=== PATIENT | female | born 1995 | race American Indian/Alaskan Native ===

== ENCOUNTER 2018-02-06 19:32 | Inpatient (IN) | payer MEDICAID ==
--- NOTE | 2018-02-06 21:51 | History and Physical Report ---
History of Present Illness Date of examination: 02/06/18 Date of admission: 02/06/18 19:32 Chief complaint: IUP@39weeks with IUGR, presents for induction by [facility] recommendation, states she was cephalic at [facility] office today. History of present illness: Past History : 2 Term Births: 1 Premature Births: 0 Living Children: 1 Para: 1 Mult. Births: 0 Prev : 0 Prev. attempt? 0 Aborta: 0 Elect. Ab: 0 Spont. Ab: 0 Ectopics: 0 # 1 Delivery date: 2014 Weeks Gestation: 37 labor: no Delivery type: Infant Sex: Male weight: 5# Comments: no complications Past Medical History: HSV Past Surgical History: negative Past Medical History Anesthesia Complications: negative Anemia: negative Autoimmune Disorder: negative Bleeding Disorder: negative Blood Transfusions: negative Breast Disease: negative Diabetes: negative Heart Disease: negative Hypertension: negative Hepatitis/Liver Disease: negative Kidney Disease/UTI: negative Neurologic/Epilepsy/Migraines: negative Phlebitis/Varicosities: negative Psychiatric: negative Pulmonary Disease/Asthma: negative Thyroid Disease: negative Hospitalizations: negative Surgery (Non-rn gyn): negative Abnormal PAP: negative Family Hx: HTN - mother and MGM 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 of genital herpes: yes Partner hx. of genital herpes: yes Rash, Viral, or Febrile illness since last LMP? no Varicella/Chicken Pox Status: Immunized Genetic History Congenital Heart Defect: Mom: no Dad: no Brissa Disease: Mom: no Dad: no Thalassemia Mom: no Dad: no Neural Tube Defect Mom: no Dad: no Down's Syndrome Mom: no Dad: no Teddy-Sachs Mom: no Dad: no Sickle Cell Disease/Trait Mom: no Dad: no Hemophilia Mom: no Dad: no Muscular Dystrophy Mom: no Dad: no Cystic Fibrosis Mom: no Dad: no Screven Chorea Mom: no Dad: no Mental Retardation Mom: no Dad: no Fragile X Mom: no Dad: no Other Genetic/Chromosomal Disorder Mom: no Dad: no Child w/other defect Mom: no Dad: no Enviromental Exposures Xray Exposure: no Medication, drug, or alcohol use since LMP: no Chemical/Other Exposure: no Exposure to Cat Liter: no Hx of Parvovirus (Fifth Disease): no Occupational Exposure to Children: none Current Allergies (reviewed today): No known allergies Past History - Obstetrical History Expected Date of Delivery: 02/11/18 Actual Gestation: 39 Week(s) 2 Day(s) : 2 Hx # Term Pregnancies: 1 Medications and Allergies Allergies Allergy/AdvReac Type Severity Reaction Status Date / Time No Known Allergies Allergy Unverified 02/06/18 20:29 Review of Systems All systems: negative - Vital Signs Vital signs: Vital Signs Temp Pulse Resp BP Pulse Ox 98.3 F 100 H 18 108/57 97 02/06/18 20:54 02/06/18 20:54 02/06/18 20:54 02/06/18 20:54 02/06/18 20:54 Temp Pulse Resp BP Pulse Ox 98.3 F 96 H 18 108/57 97 02/06/18 20:54 02/06/18 21:06 02/06/18 20:54 02/06/18 21:01 02/06/18 21:06 - Physical Exam Breasts: Positive: deferred Lungs: Positive: Normal air movement Abdomen: Positive: normal appearance Genitourinary (Female): Positive: other (States her last outbreak was several months ago, she denies prodromal symptoms or current or recent outbreak) Results All other labs normal. Assessment and Plan - Patient Problems (1) 39 weeks gestation of Current Visit: Yes Status: Acute (2) IUGR (intrauterine growth restriction) Current Visit: Yes Status: Acute Plan to address problem: Serial induction explained, questions answered, will check cervix and ? cervidil placement if she's still closed. She voiced understanding and agrees with plan of care
[2018-02-06] MEDS ORDERED: XYLOCAINE 2% INFILTRATI ONE (22:15)
[2018-02-06] MEDS ORDERED: CERVIDIL VG ONE (22:15)
[2018-02-06] MEDS ORDERED: STADOL IV PRN (22:15)
[2018-02-06] MEDS ORDERED: BRETHINE IVP PRN (22:15)
[2018-02-06] MEDS ORDERED: POLYCILLIN/NS 2 GM/100 ML 2 GM/100 ML BAG IV ONE (22:15)
[2018-02-06] MEDS ORDERED: SUBLIMAZE IV PRN (22:15)
[2018-02-06] MEDS ORDERED: BRETHINE SUB-Q PRN (22:15)
[2018-02-06] MEDS ORDERED: ePHEDrine SULFATE IV PRN (22:15)
[2018-02-06] MEDS ORDERED: MINERAL OIL PO PRN (22:15)
[2018-02-06] MEDS ORDERED: NARCAN 0.4 MG/1 ML IV PRN (22:15)
[2018-02-06 22:48] LABS: Hematocrit 34.8 % (30.3-42.9); Hemoglobin 11.7 gm/dl (10.1-14.3); Mean Corpuscular HGB Conc 34 % (30-34); Mean Corpuscular Hemoglobin 28 pg (28-32); Mean Corpuscular Volume 82 fl (79-97); Platelet Count 263 K/mm3 (140-440); Red Blood Count 4.24 M/mm3 (3.65-5.03); Red Cell Distribution Width 14.8 % (13.2-15.2)
[2018-02-06] MEDS ORDERED: PITOCin/NS 20 UNIT/1000ML DRIP 20 UNITS/1,000 ML BAG IV SCH (23:00)
[2018-02-07] MEDS: AMPICILLIN/NS 1 GM/50 ML 1 GM/50 ML BAG IV SCH ×4 (02:43→17:00)
--- NOTE | 2018-02-07 07:11 | Progress Note ---
Assessment and Plan remove cervidil around 1130, allow lunch and shower if FHT CAT 1 and then will start pitocin. - Patient Problems (1) 39 weeks gestation of Current Visit: Yes Status: Acute (2) IUGR (intrauterine growth restriction) Current Visit: Yes Status: Acute Subjective - Subjective Date of service: 02/07/18 Principal diagnosis: IUP @ 39+3, IOL for IUGR Patient reports: movement normal, contractions, no loss of fluid, no vaginal bleeding Objective - Vital Signs Vital Signs: Vital Signs - 12hr 02/06/18 02/06/18 02/06/18 20:54 21:01 21:06 Temperature 98.3 F Pulse Rate 100 H 94 H 96 H Respiratory 18 Rate Blood Pressure 108/57 Blood Pressure 108/57 [Right] O2 Sat by Pulse 97 98 97 Oximetry 02/07/18 02/07/18 05:47 05:51 Temperature 98.1 F Pulse Rate 86 86 Respiratory 16 Rate Blood Pressure 125/74 Blood Pressure 125/74 [Right] O2 Sat by Pulse 98 Oximetry - Exam Breasts: normal Cardiovascular: Regular rate Lungs: Clear to auscultation, Normal air movement Abdomen: Present: normal appearance, soft Vulva: both: normal Uterus: Present: normal Uterine Contraction Monitor Mode: External Uterine Contraction Pattern: Irregular Uterine Tone Measurement Phase: Contraction Uterine Contraction Intensity: Mild Extremities: normal Deep Tendon Reflex Grade: Normal +2 - Labs Labs: Laboratory Results - last 24 hr 02/06/18 02/06/18 21:45 21:45 WBC 8.1 RBC 4.24 Hgb 11.7 Hct 34.8 MCV 82 MCH 28 MCHC 34 RDW 14.8 Plt Count 263 HIV 1&2 Antibody Rapid Non react HIV P24 Antigen Non react Blood Type B POSITIVE Antibody Screen Negative
[2018-02-07] MEDS: LACTATED RINGERS 1,000 ML IV SCH ×2 (12:07→19:40)
[2018-02-07] MEDS ORDERED: PITOCin/NS 30 UNIT/500ML 30,000 MILLIUNITS/500 ML BAG IV ONE (12:18)
--- NOTE | 2018-02-07 12:29 | Event Note ---
Date: 02/07/18 SROM clear fluid, SVE unchanged. Will begin active management pitocin. Advised patient she may be epidural PRN. Continue antibiotics, 4th dose infused at this time.
[2018-02-07] MEDS ORDERED: PITOCin/NS 30 UNIT/500ML 30 UNITS/500 ML BAG IV SCH (12:30)
--- NOTE | 2018-02-07 16:49 | Progress Note ---
Assessment and Plan Patient's pitocin increased to 12mU, she is moaning and tensing with ctx. SVE 2/70/0, vertex with strong force behind the ctx. Encouraged Patient to get epidural as it may help her relax and dilate, patient declines and states she doesn't want epidural. Will continue with current plan of care. - Patient Problems (1) 39 weeks gestation of Current Visit: Yes Status: Acute (2) IUGR (intrauterine growth restriction) Current Visit: Yes Status: Acute Subjective - Subjective Date of service: 02/07/18 Principal diagnosis: IUP @ 39+3, IOL for IUGR Patient reports: loss of fluid, movement normal, contractions, no vaginal bleeding Objective - Vital Signs Vital Signs: Vital Signs - 12hr 02/07/18 02/07/18 02/07/18 05:47 05:51 07:55 Temperature 98.1 F Pulse Rate 86 86 96 H Respiratory 16 Rate Blood Pressure 125/74 106/64 Blood Pressure 125/74 [Right] O2 Sat by Pulse 98 Oximetry 02/07/18 02/07/18 02/07/18 11:31 12:05 12:09 Temperature 98.2 F Pulse Rate 95 H Respiratory 16 16 Rate Blood Pressure 131/71 Blood Pressure [Right] O2 Sat by Pulse Oximetry 02/07/18 02/07/18 15:08 15:09 Temperature 98.2 F Pulse Rate 102 H Respiratory 16 Rate Blood Pressure 122/78 Blood Pressure [Right] O2 Sat by Pulse Oximetry - Exam Breasts: normal Cardiovascular: Regular rate Lungs: Clear to auscultation, Normal air movement Abdomen: Present: normal appearance, soft Vulva: both: normal Uterus: Present: normal FHR: auscultation normal, category 1 Uterine Contraction Monitor Mode: External Cervical Dilatation: 2 Cervical Effacement Percentage: 70 station: 0 Uterine Contraction Frequency (min): 2-5 Uterine Contraction Duration: 60 Uterine Contraction Pattern: Regular Uterine Tone Measurement Phase: Contraction Uterine Contraction Intensity: Moderate Extremities: normal - Labs Labs: Laboratory Results - last 24 hr 02/06/18 02/06/18 02/06/18 21:45 21:45 21:45 WBC 8.1 RBC 4.24 Hgb 11.7 Hct 34.8 MCV 82 MCH 28 MCHC 34 RDW 14.8 Plt Count 263 RPR Nonreactive HIV 1&2 Antibody Rapid Non react HIV P24 Antigen Non react Blood Type B POSITIVE Antibody Screen Negative
[2018-02-07] MEDS ORDERED: NARCAN 2 MG/2 ML IV PRN (18:24)
[2018-02-07] MEDS ORDERED: ePHEDrine SULFATE IV PRN (18:24)
--- NOTE | 2018-02-07 18:24 | Anesthesia Consultation ---
Anesthesia Consult and Med Hx Date of service: 02/07/18 - Airway Anesthetic Teeth Evaluation: Good ROM Head & Neck: Adequate Mental/Hyoid Distance: Adequate Mallampati Class: Class II Intubation Access Assessment: Good - Pulmonary Exam CTA: Yes - Cardiac Exam Cardiac Exam: No Murmur - Pre-Operative Health Status ASA Pre-Surgery Classification: ASA2 Proposed Anesthetic Plan: Epidural - Pulmonary Hx Asthma: No COPD: No Hx Pneumonia: No - Cardiovascular System Hx Hypertension: No - Central Nervous System Hx Seizures: No Hx Psychiatric Problems: No - Endocrine Hx Renal Disease: No Hx End Stage Renal Disease: No Hx Hypothyroidism: No Hx Hyperthyroidism: No - Hematic Hx Anemia: No Hx Sickle Cell Disease: No - Other Systems Hx Alcohol Use: No
[2018-02-07] MEDS ORDERED: fentaNYL-BUPIV 2 MCG/ML-0.125% 200 MCG/100 ML BAG EPIDURAL SCH (19:00)
[2018-02-07] MEDS ORDERED: ZOFRAN IV ONE (20:02)
[2018-02-07] MEDS ORDERED: NACL 0.9% 1000 ML 1,000 ML VG SCH (21:00)
--- NOTE | 2018-02-07 22:03 | Procedure Note ---
OB Delivery Note - Delivery Date of Delivery: 02/07/18 ( male) Junior Electrical Engineer: ROSARIO ROWLEY Estimated blood loss: 200cc - Vaginal Delivery presentation: vertex Delivery position: OP Intrapartum events: PROM->1hr before delivery, other(please specify) (IOL for IUGR) Delivery induction: cervidil Delivery augmentation: pitocin Delivery monitor: internal FHT, internal uterine Route of delivery: Delivery placenta: spontaneous Delivery cord: 3 umbilical vessels Episiotomy: none Delivery laceration: none Anesthesia: epidural Delivery comments: Male infant del over intact perineum, placed skin to skin on mother's abdomen. 3 vessel cord clamped and cut. Placenta del intact and complete. No laceration to repair. EBL 200, Apgars 8/8, baby's weight 5#14. Mother and infant remain LDR stable. - Infant A at 1 minute: 8 at 5 minutes: 8 Infant Gender: Male (5#14)
[2018-02-07] MEDS ORDERED: DULCOLAX PR PRN (23:38)
[2018-02-07] MEDS ORDERED: PHENERGAN PO PRN (23:38)
[2018-02-07] MEDS ORDERED: LANSINOH TP PRN (23:38)
[2018-02-07] MEDS ORDERED: MILK OF MAGNESIA PO PRN (23:38)
[2018-02-07] MEDS ORDERED: TYLENOL PO PRN (23:38)
[2018-02-07] MEDS ORDERED: PITOCin/NS 20 UNIT/1000ML DRIP 20 UNITS/1,000 ML BAG IV SCH (23:38)
[2018-02-07] MEDS ORDERED: SODIUM CHLORIDE FLUSH SYRINGE 10 ML IV PRN (23:38)
[2018-02-07] MEDS ORDERED: BENADRYL PO PRN (23:38)
[2018-02-07] MEDS ORDERED: DERMOPLAST TP PRN (23:38)
[2018-02-07] MEDS ORDERED: TUCKS PAD TP PRN (23:38)
[2018-02-07] MEDS: MOTRIN PO SCH (23:46)
[2018-02-08] MEDS: MOTRIN PO SCH ×4 (05:24→23:08)
--- NOTE | 2018-02-08 07:36 | Progress Note ---
Assessment and Plan - Patient Problems (1) (spontaneous vaginal delivery) Onset Date: ~02/07/18 Current Visit: Yes Status: Acute Plan to address problem: Pt resting No c/o voiced VSS FF below umb Lochia small Perineum intact H&H pending No s/sx of anemia Doing well vag delivery P: continue pathway Advance diet and activity as tolerated. Subjective - Subjective Date of service: 02/08/18 (no c/o voiced) Principal diagnosis: Day # 1 s/p vaginal delivery Patient reports: appetite normal, voiding normally, pain well controlled, ambulating normally : doing well Objective - Vital Signs Latest vital signs: Vital Signs Temp Pulse Resp BP BP Pulse Ox 02/08/18 04:00 98.7 F 69 16 114/78 02/08/18 01:50 98.6 F 102 H 20 99/55 99 02/07/18 23:46 16 02/07/18 23:39 97.9 F 16 02/07/18 23:36 101 H 127/68 02/07/18 23:21 100 H 107/57 02/07/18 23:14 106 H 118/60 02/07/18 22:36 96 H 130/56 02/07/18 22:21 101 H 133/62 02/07/18 22:06 99 H 133/63 02/07/18 21:31 97.7 F 02/07/18 21:23 114 H 117/86 02/07/18 21:06 101 H 98/62 02/07/18 20:51 88 106/57 02/07/18 20:37 85 114/57 02/07/18 20:21 83 121/58 02/07/18 20:08 97 H 133/64 02/07/18 20:00 71 L 02/07/18 19:58 132 H 95 02/07/18 19:53 110 H 100 02/07/18 19:52 125 H 158/70 02/07/18 19:49 77 80 L 02/07/18 19:48 98 H 142/78 100 02/07/18 19:43 103 H 99 02/07/18 19:38 112 H 100 02/07/18 19:37 112 H 87 02/07/18 19:33 84 81 L 02/07/18 19:30 97.2 F L 101 H 20 62 L 02/07/18 19:27 108 H 100 02/07/18 19:22 99 H 100 02/07/18 19:17 100 H 100 02/07/18 19:12 110 H 100 02/07/18 19:07 103 H 100 02/07/18 19:06 104 H 114/62 02/07/18 19:02 103 H 98 02/07/18 18:57 113 H 98 02/07/18 18:53 107 H 112/58 02/07/18 18:52 107 H 99 02/07/18 18:45 126 H 141/73 02/07/18 18:37 65 87 02/07/18 18:32 107 H 79 L 02/07/18 18:25 92 H 98 02/07/18 18:20 97 H 98 02/07/18 18:15 99 H 99 02/07/18 18:10 96 H 98 02/07/18 18:09 104 H 118/76 02/07/18 18:05 98 H 98 02/07/18 18:00 101 H 99 02/07/18 17:55 109 H 98 02/07/18 17:50 102 H 98 02/07/18 17:30 16 02/07/18 15:09 98.2 F 16 02/07/18 15:08 102 H 122/78 02/07/18 12:09 95 H 131/71 02/07/18 12:05 16 02/07/18 11:31 98.2 F 16 02/07/18 07:55 96 H 106/64 Intake and Output 02/07/18 02/08/18 02/08/18 22:59 06:59 14:59 Intake Total 1333.75 Output Total 700 1700 Balance 633.75 -1700 Intake: IV 973.75 Lactated Ringers 1,000 ml 943.75 @ 125 mls/hr IV DIRECT CECILY Rx#:[id number] PITOCin/NS 30 UNIT/500ML 30 30 units In 500 ml @ 4 mls/hr IV TITR CECILY Rx#: [id number] Oral 360 Output: Urine 700 1700 Indwelling Catheter 700 900 Void 800 Other: Total, Intake Amount 360 Total, Output Amount 700 450 Estimated Blood Loss 200 - Exam Breasts: Present: normal Cardiovascular: Present: Regular rate Lungs: Present: Normal air movement Abdomen: Present: normal appearance, soft, normal bowel sounds Uterus: Present: normal, fundal height below umbilicus Extremities: Present: normal Deep Tendon Reflex Grade: Normal +2 Incision: Present: normal, dry, intact
[2018-02-08] MEDS ORDERED: PRENATAL VITAMIN PO SCH (10:00)
[2018-02-08 10:03] LABS: Hematocrit 32.4 % (30.3-42.9); Hemoglobin 10.6 gm/dl (10.1-14.3)
[2018-02-08] MEDS: FEOSOL PO SCH ×2 (10:24→22:06)
[2018-02-08] MEDS: COLACE PO SCH ×2 (10:24→22:07)
[2018-02-09] MEDS: MOTRIN PO SCH (05:21)
--- NOTE | 2018-02-09 07:09 | Discharge Summary ---
Providers - Providers Date of Admission: 02/06/18 19:32 Date of discharge: 02/09/18 (pt desires d/c) Attending physician: DANIELA PEÑA Primary care physician: DANIELA PEÑA Hospitalization Reason for admission: active labor Delivery: Episiotomy: none Laceration: none Incision: normal Other procedures: none complications: none Discharge diagnosis: IUP at term delivered [place] baby: male Hospital course: uncomplicated vaginal delivery Pt w/o complaint VSS FF below umb Lochia small Perineum intact Stable H&H Doing well s/p vag delivery P: d/c home today with instructions RTO 4 weeks PP visit. Circ in 1 week. RX provided Condition at discharge: Good Disposition: DC-01 TO HOME OR SELFCARE - Discharge Diagnoses (1) (spontaneous vaginal delivery) Status: Acute Comment: RTO 1 week PP care Plan - Discharge Medications Prescriptions: Ibuprofen [Motrin 800 MG tab] 800 mg PO Q8HR PRN #30 tablet PRN Reason: Pain Lidocain2.5%/Prilocai2.5% [Emla] 5 gm TP ONCE PRN #1 tube PRN Reason: Pain - Provider Discharge Summary Activity: routine, no sex for 6 weeks, no heavy lifting 4 weeks, no strenuous exercise Diet: routine Instructions: routine Additional instructions: [] Smoking cessation referral if applicable(refer to patient education folder for contact #) [] Refer to [facility]'s [facility] Booklet Call your doctor immediately for: * Fever > 100.5 * Heavy vaginal bleeding ( >1 pad per hour) * Severe persistent headache * Shortness of breath * Reddened, hot, painful area to leg or breast * Drainage or odor from incision. * Keep incision clean and dry at all times and follow doctor's instructions regarding bathing/showering - Follow up plan Follow up: DANIELA PEÑA MD [Primary Care Provider] - 7 Days (Congratulations! Please call [phone] to schedule your visit in 4 weeks and your son's visit in 1 week for circumcision. Bring EMLA cream with you to his visit. Do NOT use at home. Take medications as prescribed. Call with concerns.)
[2018-02-09 11:22] VITALS: BP 98/63
== END 2018-02-09 11:00 | disposition home or self-care (01) | DRG 775 ==
LOC: LD 19:32 → OB 02-08 00:45
PROVIDERS: ADMIT Obstetrics & Gynecology; ATTEND Obstetrics & Gynecology
PROC: 3E0P7VZ Introduction of Hormone into Female Reproductive, Via Natural or Artificial Opening (ICD-10-PCS; principal; 2018-02-05)
PROC: 10E0XZZ Delivery of Products of Conception, External Approach (ICD-10-PCS; 2018-02-07)
PROC: 3E0R3BZ Introduction of Anesthetic Agent into Spinal Canal, Percutaneous Approach (ICD-10-PCS; 2018-02-07)
PROC: 00HU33Z Insertion of Infusion Device into Spinal Canal, Percutaneous Approach (ICD-10-PCS; 2018-02-07)
DX: O36.5930 Maternal care for other known or suspected poor fetal growth, third trimester, not applicable or unspecified (principal); O42.92 Full-term premature rupture of membranes, unspecified as to length of time between rupture and onset of labor; Z3A.39 39 weeks gestation of pregnancy; Z37.0 Single live birth
CPT/HCPCS: 36415; 85014; 85018; 85027; 86592; 86850; 86900; 86901; 87806; 88307; J0290; J0595; J2405; J2590; J3010; J7030; J7120